=== PATIENT | female | born 1985 | race Two or more races ===

== ENCOUNTER 2017-05-23 11:20 | Emergency (ER) | payer OTHER, BC ==
[~2017-05-23] VITALS: Ht 165.1 cm; Wt 84.1 kg
[2017-05-23] MEDS ORDERED: MOTRIN600 MG PO (12:50)
[2017-05-23] MEDS ORDERED: FLEXERIL5 MG PO (12:50)
[2017-05-23 13:06] VITALS: BP 115/80
== END 2017-05-23 13:08 | disposition home or self-care (01) ==
LOC: EME 11:20
DX: M54.2 Cervicalgia (principal); M54.9 Dorsalgia, unspecified; V43.52XA Car driver injured in collision with other type car in traffic accident, initial encounter; Y92.410 Unspecified street and highway as the place of occurrence of the external cause; J45.909 Unspecified asthma, uncomplicated
CPT/HCPCS: 99281; 99284